=== PATIENT | female | born 1960 | race Caucasian/White ===

== ENCOUNTER 2016-08-13 16:17 | Emergency (ER) | payer OTHER ==
[~2016-08-13] VITALS: Ht 170.2 cm; Wt 99.0 kg
[2016-08-13 16:19] VITALS: BP 169/87; PULSE 86; RESP 16; TEMP 97.6; O2SAT 95
[2016-08-13] MEDS ORDERED: LISI2.5T3 PO (16:44)
[2016-08-13] MEDS ORDERED: PROZ20CA11 PO (16:44)
[2016-08-13] MEDS ORDERED: LORA1TAB12 PO (16:46)
[2016-08-13] MEDS ORDERED: METO25TA3 PO (16:46)
--- NOTE | 2016-08-13 16:54 | PD ---
HPI Chief Complaint: Medical Clearance Time Seen by Provider: 16:54 Travel History International Travel<30 days: No Contact w/Intl Traveler<30days: No Traveled to known affect area: No History of Present Illness HPI 55-year-old female with a history of anxiety, depression and hypertension presents to the emergency department for evaluation of mood changes in the setting of recent medication changes. The patient states that 3 days ago her PCP took her off of Paxil 20 mg daily and placed her on Prozac 20 mg daily. States that at that same time she was also placed on lisinopril 5 mg daily. The patient states that in the past when she has tried to stop taking Paxil she has had a difficult time, states she has had withdrawal symptoms such as mood instability, tingling in the arms and visual tremors. States that since she was changed 3 days ago she has had these visual tremors and tingling sensation in her arms. States that this morning she became very upset and was throwing things at her . States that she took an Ativan 1 mg orally at home which helped her to calm down. States that she called for her healthcare plans nurse and was told to come to the emergency department. She denies any suicidal or homicidal ideations. Denies any attempts to harm herself. Denies any alcohol or drug use. Denies any chest pain, shortness of breath, abdominal pain, nausea, vomiting, headache, dizziness, weakness. PCP Dr. Bocanegra. No other complaints. PFSH Past Medical History Depression: Yes Hypertension: Yes Tetanus Vaccination: < 5 Years Influenza Vaccination: Yes ?: Not Past Surgical History Abdominal Surgery: Yes (EX LAP) Section: Yes Social History Alcohol Use: No Tobacco Use: No Substance Use: No Allergies-Medications (Allergen,Severity, Reaction): Coded Allergies: No Known Allergies (Unverified , 08/13/16) Reported Meds & Prescriptions Reported Meds & Active Scripts Active Reported Lorazepam 1 Mg Tab 1 Mg PO Q4H PRN Metoprolol Tartrate 25 Mg Tab 25 Mg PO BID Prozac (Fluoxetine HCl) 20 Mg Cap 20 Mg PO DAILY Lisinopril 2.5 Mg Tab 2.5 Mg PO DAILY Review of Systems Except as stated in HPI: all other systems reviewed are Neg Physical Exam Narrative GENERAL: Well-nourished and well-developed pleasant female patient in no acute distress who is nontoxic appearing. SKIN: Warm and dry. HEAD: Normocephalic and atraumatic. EYES: No injection, drainage, or hyphema noted. PERRLA. EOMI. ENT: No nasal drainage noted. Oropharynx is clear. NECK: Supple and the trachea is midline. CARDIOVASCULAR: Regular rate and rhythm. RESPIRATORY: Breath sounds are equal bilaterally with no accessory muscle use, wheezing, rhonchi, or crackles. GASTROINTESTINAL: Abdomen is soft, non-tender, and nondistended. MUSCULOSKELETAL: No obvious deformities, swelling, cyanosis, or ecchymosis is present throughout the upper and lower extremities. Patient has full range of motion without any signs of neurovascular compromise. NEUROLOGICAL: Awake, alert, and oriented. Normal speech and gait. Cranial nerves are grossly intact. Data Data Last Documented VS Vital Signs Date Time Temp Pulse Resp B/P Pulse Ox O2 Delivery O2 Flow Rate FiO2 08/13/16 16:19 97.6 86 16 169/87 95 MDM Medical Decision Making Medical Screen Exam Complete: Yes Emergency Medical Condition: Yes Differential Diagnosis Medication reaction versus mood disorder versus anxiety Narrative Course 55-year-old female presents to the emergency department for evaluation of a labile mood in the setting of being changed from Paxil to Prozac 3 days ago. Patient is afebrile, vital signs are stable. She is reporting a history of similar symptoms the last time she tried to stop taking Paxil. These are both SSRI medications and therefore this is not a serotonin syndrome. She is nt suicidal or homicidal. Her symptoms essentially resolved with taking Ativan at home. She is reassured and advised to continue taking her Prozac and these symptoms should improve and if they do not then she will need to follow-up with her PCP. Patient verbalizes understanding and agreement with treatment plan. I discussed the case with my attending physician Dr. Huerta who is aware of the patients history, physical examination findings, and treatment plan. Diagnosis Primary Impression: Mood changes Additional Impression: Medication therapy changed Referrals: Primary Care Physician Patient Instructions: General Instructions Additional Instructions: Continue taking your Prozac as prescribed. Take your Ativan as needed as prescribed. Follow-up with your Primary Care Physician. Return to the ED for any acute worsening of symptoms. Med/Other Pt SpecificInfo: No Change to Meds Disposition: 01 DISCHARGE HOME Condition: Stable Shyann Law Aug 13, 2016 16:54
== END 2016-08-13 17:21 | disposition home or self-care (01) ==
LOC: NEPD 16:17
DX: R45.86 Emotional lability (principal); H57.8 Other specified disorders of eye and adnexa; R20.2 Paresthesia of skin; I10 Essential (primary) hypertension; Z79.899 Other long term (current) drug therapy; Z86.59 Personal history of other mental and behavioral disorders
CPT/HCPCS: 99283